=== PATIENT | female | born 1990 | race Two or more races ===

== ENCOUNTER → 2019-02-24 | Outpatient (CLI) | payer OTHER | END | disposition home or self-care (01) | LOC: PRENATAL 09:28 | DX: O34.41 Maternal care for other abnormalities of cervix, first trimester (principal); O36.80X1 Pregnancy with inconclusive fetal viability, fetus 1; O98.911 Unspecified maternal infectious and parasitic disease complicating pregnancy, first trimester ==

== ENCOUNTER → 2019-04-05 | Outpatient (CLI) | payer OTHER | END | disposition home or self-care (01) | LOC: PRENATAL 10:00 | DX: O35.3XX0 Maternal care for (suspected) damage to fetus from viral disease in mother, not applicable or unspecified (principal); O34.42 Maternal care for other abnormalities of cervix, second trimester; O99.89 Other specified diseases and conditions complicating pregnancy, childbirth and the puerperium ==

== ENCOUNTER → 2019-06-06 | Outpatient (CLI) | payer OTHER | END | disposition home or self-care (01) | LOC: PRENATAL 08:30 | DX: O26.849 Uterine size-date discrepancy, unspecified trimester (principal); O99.89 Other specified diseases and conditions complicating pregnancy, childbirth and the puerperium; O26.899 Other specified pregnancy related conditions, unspecified trimester; O99.280 Endocrine, nutritional and metabolic diseases complicating pregnancy, unspecified trimester; O34.40 Maternal care for other abnormalities of cervix, unspecified trimester; Z3A.28 28 weeks gestation of pregnancy ==

== ENCOUNTER → 2019-07-04 | Outpatient (CLI) | payer OTHER | END | disposition home or self-care (01) | LOC: PRENATAL 10:04 | DX: O26.843 Uterine size-date discrepancy, third trimester (principal); O99.283 Endocrine, nutritional and metabolic diseases complicating pregnancy, third trimester; O36.8193 Decreased fetal movements, unspecified trimester, fetus 3 ==

== ENCOUNTER → 2019-08-01 | Outpatient (CLI) | payer OTHER | END | disposition home or self-care (01) | LOC: PRENATAL 10:08 | DX: O36.8191 Decreased fetal movements, unspecified trimester, fetus 1 (principal); O26.843 Uterine size-date discrepancy, third trimester ==